=== PATIENT | female | born 1980 | race African-American/Black ===

== ENCOUNTER 2017-01-10 15:05 | Emergency (ER) | payer OTHER ==
[2017-01-10 15:33] VITALS: BP 131/84; PULSE 83; TEMP 98.5; BMI 27.4
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
[2017-01-10] MEDS ORDERED: KETOROLAC TROMETHAMINE 60 MG/2 ML VIAL IM ONE (16:05)
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
[2017-01-10] MEDS ORDERED: IBUPROFEN 400 MG TABLET (FP) PO ONE (16:26)
== END 2017-01-10 17:29 | disposition home or self-care (01) ==
LOC: JERFT 15:05
DX: S43.401A Unspecified sprain of right shoulder joint, initial encounter (principal); V86.11XA Passenger of ambulance or fire engine injured in traffic accident, initial encounter; Y93.C9 Activity, other involving computer technology and electronic devices; Y92.414 Local residential or business street as the place of occurrence of the external cause; Y99.0 Civilian activity done for income or pay; Y93.F9 Activity, other caregiving
CPT/HCPCS: 73030-TC-RT; 84703; 99281-25